=== PATIENT | female | born 1970 | race Caucasian/White ===

== ENCOUNTER 2021-06-07 06:45 | Day surgery (SDC) | payer OTHER ==
[~2021-06-07 06:45] MED LIST: Lactated Ringers 1,000 ML IV SCH; Lidocaine 1%/Sod Bicarbonate in NS 8.4% 1 ML Syringe IDERM PRN; Sodium Chloride 0.9% 10 ML Syringe FLUSH PRN
--- NOTE | 2021-06-07 07:12 | PCM.PREANE ---
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, ovary) Pulmonary: Other (smoker) Cardiovascular: No Symptoms Gastrointestinal: Constipation, Other (occassional heartburn, takes over the counter medication for it) Neurological: No Symptoms Other: Reports: None - Physical Assessment NPO Status Date: 06/06/21 NPO Status Time: 23:00 Weight: 48.534 kg ASA Class: 3 Mental Status: Alert & Oriented x3 Airway Class: Mallampati = 2 Dentition: Reports: Normal Dentition Thyro-Mental Finger Breadths: 3 Mouth Opening Finger Breadths: 3 ROM/Head Extension: Full Lungs: Clear to Auscultation Cardiovascular: Regular Rate, Regular Rhythm - Allergies Allergies/Adverse Reactions: Allergies Allergy/AdvReac Type Severity Reaction Status Date / Time No Known Allergies Allergy Verified 06/06/21 15:52 - Blood Blood Available: No Product(s) Available: None - Acknowledgements Anesthesia Type Planned: MAC Pt an Appropriate Candidate for the Planned Anesthesia: Yes Alternatives and Risks of Anesthesia Discussed w Pt/Guardian: Yes Pt/Guardian Understands and Agrees with Anesthesia Plan: Yes PreAnesthesia Questionnaire HEENT History: Reports: Other (See Below) Other HEENT History: bacterial conjuctivits, wears glasses Cardiovascular History: Reports: None Respiratory History: Reports: Bronchitis, Recurrent Gastrointestinal History: Reports: Chronic Constipation, Other (See Below) Other Gastrointestinal History: abdominal pain [employer] History: Reports: Other (See Below) Other OB/BYN History: ovarian cyst Musculoskeletal History: Reports: Back Pain, Chronic Other Musculoskeletal History: Herniated disc Neurological History: Reports: Concussion Psychiatric History: Reports: None Endocrine/Metabolic History: Reports: None Hematologic History: Reports: None Immunologic History: Reports: None Oncologic (Cancer) History: Reports: None Dermatologic History: Reports: Other (See Below) Other Dermatologic History: delayed wound healing, head laceration - Infectious Disease History Infectious Disease History: Reports: None - Past Surgical History Head Surgeries/Procedures: Reports: None HEENT Surgical History: Reports: None Cardiovascular Surgical History: Reports: None Respiratory Surgical History: Reports: None GI Surgical History: Reports: Cholecystectomy Female Surgical History: Reports: Breast Implant, D&C, Tubal Ligation Male Surgical History: Reports: None Endocrine Surgical History: Reports: None Neurological Surgical History: Reports: None Musculoskeletal Surgical History: Reports: None Oncologic Surgical History: Reports: None Dermatological Surgical History: Reports: None - SUBSTANCE USE Tobacco Use Status *Q: Current Every Day Tobacco User Recreational Drug Use History: No - HOME MEDS Home Medications: Home Meds Acetaminophen [Tylenol] 650 mg PO DAILY 06/06/21 [History] Morphine [MS Contin] 15 mg PO BID 06/06/21 [History] Sennosides [Senna] 8.6 mg PO DAILY 06/06/21 [History] ondansetron HCL [Zofran] 4 mg PO Q6H PRN 06/06/21 [History] traMADol [Ultram] 50 mg PO Q6H PRN 06/06/21 [History] - CURRENT (IN HOUSE) MEDS Current Meds: Current Medications Lactated Ringer's (Ringers, Lactated) 1,000 mls @ 125 mls/hr IV ASDIRECTED TROY Stop: 06/07/21 18:00 Lidocaine/Sodium Bicarbonate (Lidocaine 1%/Sod Bicarbonate In Ns 8.4% 1 Ml Syringe) 0.25 ml IDERM ONETIME PRN PRN Reason: Prior to IV Start Stop: 06/07/21 23:00 Sodium Chloride (Sodium Chloride 0.9% 10 Ml Syringe) 10 ml FLUSH ASDIRECTED PRN PRN Reason: Keep Vein Open Stop: 06/07/21 23:00
[2021-06-07] MEDS ORDERED: Albuterol 0.083% 2.5 MG/3 ML Neb Soln NEB ONE (07:19)
[2021-06-07] MEDS ORDERED: Midazolam 1 MG/ML 2 ML SDV ONE (07:25)
[2021-06-07] MEDS ORDERED: fentaNYL 100 MCG/2 ML SDV ONE (07:25)
[2021-06-07] MEDS ORDERED: Propofol 200 MG/20 ML SDV ONE (07:25)
--- NOTE | 2021-06-07 09:12 | PCM48HPAN ---
Post Anesthesia Note - EVALUATION WITHIN 48HRS OF ANESTHETIC Vital Signs in Normal Range: Yes Patient Participated in Evaluation: Yes Respiratory Function Stable: Yes Airway Patent: Yes Cardiovascular Function Stable: Yes Hydration Status Stable: Yes Pain Control Satisfactory: Yes Nausea and Vomiting Control Satisfactory: Yes Mental Status Recovered: Yes Vital Signs: Last Vital Signs Temp 36.8 C 06/07/21 07:20 Pulse 81 06/07/21 07:36 Resp 14 06/07/21 07:20 BP 104/76 06/07/21 07:20 Pulse Ox 100 06/07/21 07:20
--- NOTE | 2021-06-07 09:32 | PCM.OPNOTE ---
- General Post-Op/Procedure Note Date of Surgery/Procedure: 06/07/21 Operative Procedure(s): EGD and incomplete colonoscopy Findings: 1. Hiatal hernia with abnormal mucosa 2. Bile reflux 3. Gastritis 4. Rectal mass at 7-10cm 5. Rectal polyps x 6 Pre Op Diagnosis: Liver metastasis, pelvic mass Post-Op Diagnosis: same Anesthesia Technique: MAC Primary Surgeon: Mehreen Marin Anesthesia Provider: Snehal Kim Pathology: 1. Gastric antrum biopsies 2. Hiatal hernia biopsy 3. Rectal mass biopsies 4. Rectal polyp x6 Fluid Replacement, Intraop: 700 EBL in mLs: 0 Complications: none apparent Condition: Good
--- NOTE | 2021-06-07 09:41 | PCM.PRNOTE ---
- Free Text/Narrative Note: Operative Report Date of Procedure: June 07, 2021 Pre Op Diagnosis: Liver metastasis, pelvic mass Post-Op Diagnosis: same Operative Procedures: 1. EGD with biopsy 2. Incomplete Colonoscopy to the sigmoid with biopsy Primary Surgeon: Mehreen Marin MD Anesthesia Provider: Snehal Kim CRNA Anesthesia Technique: MAC IV Fluid Replacement, Intraop: 700cc crystalloid Output, Urine Amount: 0cc EBL in mLs: 0cc Findings: 1. Hiatal hernia with abnormal mucosa 2. Bile reflux 3. Gastritis 4. Rectal mass at 7-10cm 5. Rectal polyps x 6 Specimens: 1. Gastric antrum biopsies 2. Hiatal hernia biopsy 3. Rectal mass biopsies 4. 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 The patient reported symptoms of ribbon-like stools and constipation. The patient was consented for a diagnostic EGD and colonoscopy. Risks of bleeding, and perforation were discussed, and the patient agreed to the risks and wished to proceed. Description of the procedure: The patient was taken back to the endoscopy suite, and placed in the left lateral decubitus position. A bite block was placed. The patient was sedated with MAC anesthesia. The Olympus video endoscope was inserted into the oropharynx and guided under direct vision into the esophagus, stomach, and duodenum. The duodenal bulb and second portion of the duodenum were unremarkable. The gastric antrum was inspected and cold biopsy forceps were used to take tissue samples for H. pylori. There were findings of gastritis noted in the stomach. The scope was withdrawn to the stomach and retroflexed. There was increased bilious fluid pooling in the body of the stomach. No erosions or ulcers were noted. The scope was withdrawn to the esophagus. A this point we noted a hiatal hernia. A 4mm patch of mucosa had an abnormal vascularity within the hiatal hernia and was biopsied with a cold biopsy forceps. No Barretts esophagus changes were noted. The endoscope was then withdrawn. Next, anorectal examination was performed. An irregularly shaped mass was palpated on the posterior rectum approximately 7cm from the anal verge. The scope was placed into the rectum and the mass was immediately visualized. It was approximately 5-6cm in size. This was biopsied with a cold biopsy forceps. The mass was only partially occluding the lumen, and attempt was made to advance beyond the mass. The scope was only advance to 20cm and resistance was encountered. A 5mm semipedunculated rectal polyp was removed, as well as 5 additional 2-4mm flat polyps. These were removed with a cold biopsy forceps. In the rectum, scope was retroflexed and some hemorrhoidal tissue was noted. The scope was placed back in the lumen and excess air was aspirated. The scope was removed. The patient tolerated the procedure well. Complications: None apparent Condition: The patient was transported to PACU in stable condition. Mehreen Marin MD General Surgery
[2021-06-07] MEDS ORDERED: Ketorolac 15 MG/ML SDV IVPUSH ONE (10:00)
== END 2021-06-07 10:25 | disposition home or self-care (01) ==
LOC: JD.SDS 06:45
PROVIDERS: ATTEND Surgery
DX: C20 Malignant neoplasm of rectum (principal); K44.9 Diaphragmatic hernia without obstruction or gangrene; K29.50 Unspecified chronic gastritis without bleeding; K62.89 Other specified diseases of anus and rectum; C78.7 Secondary malignant neoplasm of liver and intrahepatic bile duct; K62.1 Rectal polyp; F17.210 Nicotine dependence, cigarettes, uncomplicated; Z90.49 Acquired absence of other specified parts of digestive tract; Z98.890 Other specified postprocedural states; Z79.899 Other long term (current) drug therapy
CPT/HCPCS: 43239; 45380; J1885; J2250; J2704; J3010; J7120; 00813

== ENCOUNTER 2023-04-16 11:26 | Inpatient (IN) | payer OTHER ==
[2023-04-16] MEDS ORDERED: HYDROmorphone 0.5 MG/0.5 ML Syringe IVPUSH ONE (13:25)
[2023-04-16] MEDS ORDERED: D5%-0.9% NaCl w/ KCl 40 meq 1,000 ML IV SCH (13:30)
[2023-04-16] MEDS ORDERED: Ondansetron 4 MG Tab.DIS PO PRN (14:07)
[2023-04-16] MEDS ORDERED: Acetaminophen 325 MG Tab PO PRN (14:07)
[2023-04-16] MEDS ORDERED: Ondansetron 4 MG/2 ML SDV IV PRN (14:07)
[2023-04-16] MEDS ORDERED: Sodium Chloride 0.9% 10 ML Syringe FLUSH PRN (14:07)
[2023-04-16 14:47] LABS: BASOPHILS ABSOLUTE AUTO 0.01 K/mm3 (0.01-0.08); BASOPHILS PERCENT AUTO 0.2 % (0.1-1.2); EOSINOPHILS ABSOLUTE AUTO 0.23 K/mm3 (0.04-0.36); EOSINOPHILS PERCENT AUTO 3.9 (0.7-5.8); HEMATOCRIT 36.2 % (34.1-44.9); HEMOGLOBIN 11.1 gm/dl (11.2-15.7); IMMATURE GRAN ABSOLUTE AUTO 0.01 K/mm3 (0.00-0.10); IMMATURE GRAN PERCENT AUTO 0.2 % (<=1.0); LYMPHOCYTES ABSOLUTE AUTO 1.09 K/mm3 (1.18-3.74); LYMPHOCYTES PERCENT AUTO 18.6 % (19.3-51.7); MEAN CORPUSCULAR HEMOGLOBIN 25.8 pg (25.6-32.2); MEAN CORPUSCULAR HGB CONC 30.7 g/dl (32.2-35.5); MEAN CORPUSCULAR VOLUME 84.2 fl (79.4-94.8); MEAN PLATELET VOLUME 9.3 fl (9.4-12.3); MONOCYTES ABSOLUTE AUTO 0.39 K/mm3 (0.24-0.36); MONOCYTES PERCENT AUTO 6.7 % (4.7-12.5); NEUTROPHILS ABSOLUTE AUTO 4.13 K/mm3 (1.56-6.13); NEUTROPHILS PERCENT AUTO 70.4 % (34.0-71.1); PLATELET COUNT,PLT 287 K/mm3 (182-369); WHITE BLOOD CELL COUNT,WBC 5.86 K/mm3 (3.98-10.04)
[2023-04-16 15:06] LABS: A/G RATIO 0.9 (1-2); ALBUMIN 2.6 g/dl (3.4-5.0); ANION GAP 10.3 (5-15); BILIRUBIN TOTAL 0.3 mg/dL (0.2-1.0); CALCIUM 8.1 mg/dL (8.5-10.1); CREATININE 0.5 mg/dL (0.55-1.02); EST CRCL DRUG DOSING (CG) 77.47 mL/min; POTASSIUM,K 3.3 mEq/L (3.5-5.1); PROTEIN TOTAL,TP 5.5 g/dl (6.4-8.2)
[2023-04-16] MEDS: Sodium Chloride 0.45% with KCl 1,000 ML IV SCH (15:45)
[2023-04-16] MEDS: Pantoprazole 40 MG Vial IV SCH (16:24)
[2023-04-16] MEDS: Dicyclomine 10 MG Cap PO SCH ×2 (16:24→20:05)
[2023-04-16] MEDS: HYDROmorphone 1 MG/ML Syringe IVPUSH PRN ×2 (16:54→21:45)
[2023-04-16] MEDS: Morphine 15 MG Tab.ER PO SCH (20:04)
[2023-04-17] MEDS: Sodium Chloride 0.45% with KCl 1,000 ML IV SCH (02:55)
[2023-04-17] MEDS: HYDROmorphone 1 MG/ML Syringe IVPUSH PRN (02:59)
[2023-04-17 05:34] LABS: BASOPHILS ABSOLUTE AUTO 0.01 K/mm3 (0.01-0.08); BASOPHILS PERCENT AUTO 0.2 % (0.1-1.2); EOSINOPHILS ABSOLUTE AUTO 0.29 K/mm3 (0.04-0.36); EOSINOPHILS PERCENT AUTO 4.5 (0.7-5.8); HEMATOCRIT 33.1 % (34.1-44.9); HEMOGLOBIN 10.1 gm/dl (11.2-15.7); IMMATURE GRAN ABSOLUTE AUTO 0.01 K/mm3 (0.00-0.10); IMMATURE GRAN PERCENT AUTO 0.2 % (<=1.0); LYMPHOCYTES ABSOLUTE AUTO 1.56 K/mm3 (1.18-3.74); LYMPHOCYTES PERCENT AUTO 24.3 % (19.3-51.7); MEAN CORPUSCULAR HGB CONC 30.5 g/dl (32.2-35.5); MEAN CORPUSCULAR VOLUME 85.3 fl (79.4-94.8); MEAN PLATELET VOLUME 10.5 fl (9.4-12.3); MONOCYTES ABSOLUTE AUTO 0.62 K/mm3 (0.24-0.36); MONOCYTES PERCENT AUTO 9.6 % (4.7-12.5); NEUTROPHILS ABSOLUTE AUTO 3.94 K/mm3 (1.56-6.13); NEUTROPHILS PERCENT AUTO 61.2 % (34.0-71.1); PLATELET COUNT,PLT 273 K/mm3 (182-369); RED BLOOD CELL COUNT 3.88 M/mm3 (3.98-5.22); WHITE BLOOD CELL COUNT,WBC 6.43 K/mm3 (3.98-10.04)
[2023-04-17 05:47] LABS: CREATININE 0.5 mg/dL (0.55-1.02); EST CRCL DRUG DOSING (CG) 76.72 mL/min
[2023-04-17] MEDS: Pantoprazole 40 MG Vial IV SCH (08:05)
[2023-04-17] MEDS: Morphine 15 MG Tab.ER PO SCH ×2 (08:05→20:35)
[2023-04-17] MEDS: Dicyclomine 10 MG Cap PO SCH ×4 (08:05→20:35)
[2023-04-17] MEDS ORDERED: Enoxaparin 40 MG/0.4 ML Syringe SUBCUT SCH ×2 (09:00)
[2023-04-17 09:08] LABS: MAGNESIUM 1.7 mg/dL (1.8-2.4); PHOSPHORUS 2.8 mg/dL (2.6-4.7)
[2023-04-17] MEDS ORDERED: Fat Emulsion 250 ML IV SCH (09:30)
[2023-04-17] MEDS: MVI, Adult with Vitamin K 10 ML in AA 5%/Calcium/D20W/Lytes 1,000 ML IV SCH ×2 (10:08)
[2023-04-17] MEDS ORDERED: Oxybutynin 5 MG Tab PO PRN (12:40)
[2023-04-17] MEDS: oxyCODONE 5 MG Tab PO PRN ×2 (12:47→17:42)
[2023-04-17] MEDS ORDERED: Non-Formulary Medication 1 EACH ONE (18:00)
[2023-04-17] MEDS: HYDROmorphone 2 MG Tab PO PRN (21:58)
[2023-04-18] MEDS: HYDROmorphone 2 MG Tab PO PRN ×3 (01:46→12:31)
[2023-04-18] MEDS: MVI, Adult with Vitamin K 10 ML in AA 5%/Calcium/D20W/Lytes 1,000 ML IV SCH ×2 (01:46)
[2023-04-18] MEDS ORDERED: Non-Formulary Medication 1 EACH ONE (02:00)
[2023-04-18 05:25] LABS: BASOPHILS ABSOLUTE AUTO 0.01 K/mm3 (0.01-0.08); BASOPHILS PERCENT AUTO 0.2 % (0.1-1.2); EOSINOPHILS ABSOLUTE AUTO 0.18 K/mm3 (0.04-0.36); EOSINOPHILS PERCENT AUTO 4.3 (0.7-5.8); HEMATOCRIT 34.3 % (34.1-44.9); HEMOGLOBIN 10.7 gm/dl (11.2-15.7); IMMATURE GRAN ABSOLUTE AUTO 0.01 K/mm3 (0.00-0.10); IMMATURE GRAN PERCENT AUTO 0.2 % (<=1.0); LYMPHOCYTES ABSOLUTE AUTO 0.97 K/mm3 (1.18-3.74); MEAN CORPUSCULAR HEMOGLOBIN 26.6 pg (25.6-32.2); MEAN CORPUSCULAR HGB CONC 31.2 g/dl (32.2-35.5); MEAN CORPUSCULAR VOLUME 85.3 fl (79.4-94.8); MEAN PLATELET VOLUME 10.3 fl (9.4-12.3); MONOCYTES ABSOLUTE AUTO 0.46 K/mm3 (0.24-0.36); MONOCYTES PERCENT AUTO 10.9 % (4.7-12.5); NEUTROPHILS ABSOLUTE AUTO 2.58 K/mm3 (1.56-6.13); NEUTROPHILS PERCENT AUTO 61.4 % (34.0-71.1); PLATELET COUNT,PLT 262 K/mm3 (182-369); RED BLOOD CELL COUNT 4.02 M/mm3 (3.98-5.22); WHITE BLOOD CELL COUNT,WBC 4.21 K/mm3 (3.98-10.04)
[2023-04-18 05:53] LABS: ANION GAP 7.5 (5-15); CALCIUM 8.4 mg/dL (8.5-10.1); CREATININE 0.5 mg/dL (0.55-1.02); EST CRCL DRUG DOSING (CG) 75.11 mL/min; POTASSIUM,K 3.5 mEq/L (3.5-5.1)
[2023-04-18 05:55] LABS: MAGNESIUM 1.9 mg/dL (1.8-2.4); PHOSPHORUS 3.7 mg/dL (2.6-4.7)
[2023-04-18] MEDS: Morphine 15 MG Tab.ER PO SCH (08:54)
[2023-04-18] MEDS: Dicyclomine 10 MG Cap PO SCH ×2 (08:55→12:31)
[2023-04-18] MEDS ORDERED: MVI, Adult with Vitamin K 10 ML in AA 5%/Calcium/D20W/Lytes 1,000 ML IV SCH ×2 (10:00)
== END 2023-04-18 12:41 | disposition home or self-care (01) | DRG 391 ==
LOC: JD.ED 11:26 → JD.MS 15:03
PROVIDERS: ADMIT Hospitalist; ATTEND Hospitalist
DX: R11.2 Nausea with vomiting, unspecified (principal); E43 Unspecified severe protein-calorie malnutrition; C19 Malignant neoplasm of rectosigmoid junction; Z68.1 Body mass index [BMI] 19.9 or less, adult; R64 Cachexia; T45.1X5A Adverse effect of antineoplastic and immunosuppressive drugs, initial encounter; Z66 Do not resuscitate; R19.7 Diarrhea, unspecified; K59.09 Other constipation; G89.29 Other chronic pain; M54.9 Dorsalgia, unspecified; E87.6 Hypokalemia; K21.9 Gastro-esophageal reflux disease without esophagitis; Z90.49 Acquired absence of other specified parts of digestive tract; Z79.899 Other long term (current) drug therapy; Z97.3 Presence of spectacles and contact lenses; Z98.51 Tubal ligation status; Z98.890 Other specified postprocedural states; Z98.82 Breast implant status
CPT/HCPCS: 36415; 80048; 80053; 82947; 83735; 84100; 85025; 87493; 96374; 99222; 99231; 99239; 99284-25; 99285; A9270-GY; C9113; J1170; J1650; J3480; J3490

== ENCOUNTER 2023-06-02 10:57 | Emergency (ER) | payer OTHER ==
[2023-06-02] MEDS ORDERED: Bisacodyl 5 MG Tab PO ONE (11:51)
[2023-06-02] MEDS ORDERED: Magnesium Hydroxide 400 MG/5 ML Susp 30 ML Cup PO ONE (11:51)
[2023-06-02] MEDS ORDERED: Prochlorperazine 10 MG/2 ML SDV IVPUSH ONE ×2 (11:52→16:40)
[2023-06-02] MEDS ORDERED: Metoprolol Tartrate 5 MG/5 ML SDV IVPUSH ONE (14:03)
[2023-06-02 14:38] LABS: BASOPHILS PERCENT AUTO 0.2 % (0.0-1.0); EOSINOPHILS ABSOLUTE AUTO 0.2 K/mm3 (0.0-0.4); EOSINOPHILS PERCENT AUTO 1.5 % (0.0-6.0); HEMATOCRIT 34.5 % (37.0-47.0); HEMOGLOBIN 10.8 gm/dl (12.0-16.0); IMMATURE GRAN ABSOLUTE AUTO 0.03 K/mm3 (0.00-0.05); IMMATURE GRAN PERCENT AUTO 0.3 % (0.0-0.4); LYMPHOCYTES ABSOLUTE AUTO 0.6 K/mm3 (1.0-4.8); LYMPHOCYTES PERCENT AUTO 5.1 % (24.0-44.0); MEAN CORPUSCULAR HGB CONC 31.3 g/dl (32.0-36.0); MEAN CORPUSCULAR VOLUME 83.1 fl (83.0-99.0); MEAN PLATELET VOLUME 9.4 fl (9.4-12.3); MONOCYTES ABSOLUTE AUTO 0.9 K/mm3 (0.0-0.8); MONOCYTES PERCENT AUTO 8.1 % (0.0-8.0); NEUTROPHILS ABSOLUTE AUTO 9.5 K/mm3 (1.8-7.7); NEUTROPHILS PERCENT AUTO 84.8 % (41.0-71.0); PLATELET COUNT,PLT 375 K/mm3 (150-400); RED BLOOD CELL COUNT 4.15 M/mm3 (4.10-5.30); WHITE BLOOD CELL COUNT,WBC 11.18 K/mm3 (3.9-11.3)
[2023-06-02] MEDS ORDERED: HYDROmorphone 1 MG/ML Syringe IVPUSH ONE ×3 (14:56→16:53)
[2023-06-02 15:04] LABS: A/G RATIO 0.5 (1-2); ALANINE AMINOTRANSFERASE,ALT 39 U/L (14-59); ALBUMIN 2.5 g/dl (3.4-5.0); ALKALINE PHOSPHATASE 124 U/L (46-116); ANION GAP 11.8 (5-15); ASPARTATE AMNIOTRANSFERASE,AST 37 U/L (15-37); BILIRUBIN TOTAL 0.3 mg/dL (0.2-1.0); BLOOD UREA NITROGEN,BUN 13 mg/dL (7-18); CALCIUM 9.1 mg/dL (8.5-10.1); CARBON DIOXIDE,CO2 32 mEq/L (21-32); CHLORIDE,CL 97 mEq/L (98-107); CREATININE 0.5 mg/dL (0.55-1.02); ESTIMATED GFR 113 mL/min (>60); GLUCOSE RANDOM 120 mg/dL (70-99); POTASSIUM,K 3.8 mEq/L (3.5-5.1); PROTEIN TOTAL,TP 7.2 g/dl (6.4-8.2); SODIUM,NA 137 mEq/L (136-145)
== END 2023-06-02 17:21 | disposition home or self-care (01) ==
LOC: JD.ED 10:57
DX: C18.9 Malignant neoplasm of colon, unspecified (principal); C78.7 Secondary malignant neoplasm of liver and intrahepatic bile duct; K59.00 Constipation, unspecified; K21.9 Gastro-esophageal reflux disease without esophagitis; Z79.899 Other long term (current) drug therapy
CPT/HCPCS: 36415; 74019; 80053; 85025; 93005; 96374; 96375; 96376; 99284; A9270; J0780; J1170; J3490